=== PATIENT | female | born 1975 | race African-American/Black ===

== ENCOUNTER 2024-04-11 08:58 | Outpatient (REF) | payer OTHER, SELFPAY | END 2024-04-11 08:59 | disposition home or self-care (01) | LOC: HO.SH 08:58 | PROVIDERS: Visit Provider Nurse Practitioner Family | DX: Z01.118 Encounter for examination of ears and hearing with other abnormal findings (principal); H93.293 Other abnormal auditory perceptions, bilateral | CPT/HCPCS: 92557 ==